=== PATIENT | female | born 1995 | race Caucasian/White ===

== ENCOUNTER 2018-01-30 12:41 | Emergency (ER) | payer OTHER, BC ==
[2018-01-30] MEDS ORDERED: HYDROmorphone 1 MG/ML Syringe IM ONE (12:45)
[2018-01-30] MEDS ORDERED: Take Home: Acetaminophen/HYDROcodone 325-10 MG, 5 Tab Pack PO ONE (14:01)
--- NOTE | 2018-01-30 14:15 | EDM.PDOC ---
ED HPI GENERAL MEDICAL PROBLEM - General Chief Complaint: Lower Extremity Injury/Pain Stated Complaint: INJURY TO RIGHT ANKLE Time Seen by Provider: 01/30/18 12:41 Source of Information: Reports: Patient History Limitations: Reports: No Limitations - History of Present Illness INITIAL COMMENTS - FREE TEXT/NARRATIVE: Patient was brought into the emergency department complaining of left ankle pain. Patient was walking and misstepped into a hole and felt her left ankle pop and crack and twist all at the same time. Patient states she felt immediate pain radiating up her leg. She is unable to walk on it. Limited range of motion due to pain. Her fianc brought her in after taking Tylenol off for further evaluation and management. Denies falling and hitting her head, any nausea/ vomiting, diarrhea, shortness of breath, or chest pain. 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 [No Known Home Meds] 01/30/18 [History] Hydrocodone/Acetaminophen [Denniston 10-325 Tablet] 1 each PO Q4HR PRN 5 Days #15 tablet 01/30/18 [Rx] Past Medical History - Past Health History Medical/Surgical History: Denies Medical/Surgical History - Past Surgical History Female Surgical History: Reports: Section Social & Family History - Tobacco Use Smoking Status *Q: Current Every Day Smoker Years of Tobacco use: 4 Packs/Tins Daily: 1 - Recreational Drug Use Recreational Drug Use: No Review of Systems - Review of Systems Review Of Systems: See Below Constitutional: Reports: No Symptoms Eyes: Reports: No Symptoms Ears: Reports: No Symptoms Nose: Reports: No Symptoms Mouth/Throat: Reports: No Symptoms Respiratory: Reports: No Symptoms Cardiovascular: Reports: No Symptoms GI/Abdominal: Reports: No Symptoms Genitourinary: Reports: No Symptoms Musculoskeletal: Reports: No Symptoms Skin: Reports: No Symptoms Neurological: Reports: No Symptoms Psychiatric: Reports: No Symptoms ED EXAM, GENERAL - Physical Exam Exam: See Below Exam Limited By: No Limitations General Appearance: Alert, WD/WN, No Apparent Distress Head: Atraumatic, Normocephalic Neck: Normal Inspection, Supple, Non-Tender, Full Range of Motion Respiratory/Chest: No Respiratory Distress, No Accessory Muscle Use Cardiovascular: Normal Peripheral Pulses, Regular Rate, Rhythm Peripheral Pulses: 2+: Popliteal (L), Popliteal (R), Posterior Tibial (L), Posterior Tibial (R), Dorsalis Pedis (L), Dorsalis Pedis (R) Back Exam: Normal Inspection, Full Range of Motion Extremities: Normal Inspection, Normal Capillary Refill, Leg Pain (left ankle- severe swelling ecchymosis noted on limited range of motion. CMS intact.), Limited Range of Motion Neurological: Alert, Oriented Psychiatric: Normal Affect, Normal Mood Skin Exam: Warm, Dry, Intact, Normal Color, No Rash Course - Vital Signs Last Recorded V/S: Last Vital Signs Temp 36.8 C 01/30/18 12:41 Pulse 66 01/30/18 12:41 Resp 16 01/30/18 12:41 BP 106/53 L 01/30/18 12:41 Pulse Ox - Orders/Labs/Meds Orders: Active Orders 24 hr Category Date Time Status Ankle Min 3V Lt [CR] Stat Exams 01/30/18 12:44 Taken Tibia Fibula Lt [CR] Stat Exams 01/30/18 12:58 Taken Meds: Medications Discontinued Medications Generic Name Dose Route Start Last Admin Trade Name Cristopher PRN Reason Stop Dose Admin Hydrocodone Bitart/Acetaminophen 2 packet 01/30/18 14:01 Take Home: Acetaminophen/Hydrocodone 325-10mg PO 01/30/18 14:02 ONETIME ONE Hydromorphone HCl 1 mg 01/30/18 12:45 01/30/18 12:53 Dilaudid IM 01/30/18 12:46 1 mg ONETIME ONE Administration Departure - Departure Time of Disposition: 14:10 Disposition: Home, Self-Care 01 Condition: Good Clinical Impression: Malleolar fracture Qualifiers: Encounter type: initial encounter Fracture type: closed Laterality: left Qualified Code(s): S82.892A - Other fracture of left lower leg, initial encounter for closed fracture - Discharge Information Prescriptions: Hydrocodone/Acetaminophen [Denniston 10-325 Tablet] 1 each PO Q4HR PRN 5 Days #15 tablet PRN Reason: Pain (Severe 7-10) Instructions: Crutch Use, Adult, Medial or Posterior Malleolus Fracture Treated With ORIF, Pain Medicine Instructions, [id number], Acetaminophen; Hydrocodone tablets or capsules Referrals: PCP,Not In Area [Primary Care Provider] - Forms: ED Department Discharge Additional Instructions: 1. rest 2. Keep extremity elevated 3. Take pain medications as needed 4. Follow up with surgeon at home within 24 hours 5. Ensure to give disc to the surgeon 6. Use ice at minimum 3 times a day for 20mins at a time 7. Call with any questions or concerns 8. Keep eddie wrap and boot brace on at all times 9. Remain non weight bearing until orthopedic surgeon clears you to ambulate on extremity again. - Problem List Review Problem List Initiated/Reviewed/Updated: Yes - My Orders Last 24 Hours: My Active Orders 01/30/18 12:44 Ankle Min 3V Lt [CR] Stat 01/30/18 12:58 Tibia Fibula Lt [CR] Stat - Assessment/Plan Last 24 Hours: My Active Orders 01/30/18 12:44 Ankle Min 3V Lt [CR] Stat 01/30/18 12:58 Tibia Fibula Lt [CR] Stat Assessment:: 1. left ankle injury 2. Malleolar fracture Plan: 1. Xray completed in ER. Results reviewed with the pt 2. Malleolar fracture noted consult with [facility] Dr. Jarrell who states eddie wrap, camboot, and crutches. Follow up with a surgeon within 24 hours 3. Dilaudid IM given in the ER for severe pain 4. Camboot and eddie wrap applied 5. Ice and elevation to help reduce swelling while in ER 6. Disc made of xray images sent with the pt. 7. Pt sent how with norco to help with severe pain 8. Pt was advised to call orthopedic surgeon tomorrow am when they are home ( They live about [place] hours from here) to set up an appointment and possible surgery. 9. Education provided to the patient and spouse regarding RICE, follow up, pain management, and non weight bearing activities.
== END 2018-01-30 14:35 | disposition home or self-care (01) ==
LOC: VM.ED 12:41
DX: S82.892A Other fracture of left lower leg, initial encounter for closed fracture (principal); F17.210 Nicotine dependence, cigarettes, uncomplicated; Z88.1 Allergy status to other antibiotic agents; Z88.2 Allergy status to sulfonamides; X50.9XXA Other and unspecified overexertion or strenuous movements or postures, initial encounter
CPT/HCPCS: 73590; 73610; 96372; 99283; A9270; J1170